=== PATIENT | female | born 1975 | race Caucasian/White ===

== ENCOUNTER 2020-01-18 09:29 | Day surgery (SDC) | payer BC ==
[2020-01-15 16:16] VITALS: BMI 26.2
[2020-01-18 11:47] VITALS: PULSE 74
[2020-01-18 11:49] VITALS: BP 106/65; TEMP 98
== END 2020-01-18 11:30 | disposition home or self-care (01) ==
LOC: JASU-ENDO 09:29
PROVIDERS: ATTEND Internal Medicine Gastroenterology
PROC: 0DJD8ZZ Inspection of Lower Intestinal Tract, Via Natural or Artificial Opening Endoscopic (ICD-10-PCS; principal; 2020-01-18 10:30)
DX: Z12.11 Encounter for screening for malignant neoplasm of colon (principal); K64.8 Other hemorrhoids
CPT/HCPCS: 81025